=== PATIENT | female | born 1975 | race Caucasian/White ===

== ENCOUNTER → 2018-02-07 | Outpatient (CLI) | payer BC ==
[~2018-02-07] MED LIST: DOXYCYCLINE 10100 MG PO; FIORICET 50-301 EACH PO; HYDROCODONE-AP1 EAC6 PO; LEVAQUIN 500 M500 M2 PO; MEDROLDOSEPACK PO; NOHOMEMEDICATIONS; PROAIR HFA8.5 GM INH; TOPROL XL25 MG PO; WELLBUTRIN 100100 MG PO; XANAX 0.5 MG0.5 MG PO
== END ==
LOC: M.RAD 09:26
DX: M12.88 Other specific arthropathies, not elsewhere classified, other specified site (principal)